=== PATIENT | male | born 1950 | race Caucasian/White ===

== ENCOUNTER 2024-09-05 14:22 | Outpatient (CLI) | payer OTHER, SELFPAY ==
--- NOTE | ~2024-09-05 | MR_ITS ---
MRI of the left knee Clinical history: Pain Technique: Coronal proton density and proton density-weighted images, sagittal proton-density and T2 fat-sat images, and axial proton-density fat-saturated images were acquired. Findings: Anterior and posterior cruciate ligaments are intact. Medial collateral ligament and the la teral collateral ligament complex are intact. Popliteus tendon is intact. Suspected subtle undersurface flap tear of the posterior horn of the medial meniscus. No lateral meni scal tear seen. There is focal high-grade chondromalacia the patellar apex with focal subchondral marrow edema. Remai carrie articular cartilage in the knee is well preserved. There is high-grade partial tear of the distal quadriceps tendon, with a few the posterior most fiber s remaining intact. Patellar tendon intact. There is small joint effusion. There is moderate septated Morton's cyst Impression: High-grade partial tear of the distal quadriceps tendon with a few of the posterior most fibers remai carrie intact. Focal grade 4 chondral lesion at the patellar apex. Moderate septated Morton's cyst. Reviewed, dictated and finalized at location . Impression: High-grade partial tear of the distal quadriceps tendon with a few of the poste rior most fibers remaining intact. Focal grade 4 chondral lesion at the patellar apex. Moderate septated Morton's cyst.
== END 2024-09-05 14:23 | disposition home or self-care (01) ==
LOC: GOSHIMG 14:23
PROVIDERS: PCP Emergency Medicine; Visit Provider Emergency Medicine
DX: M71.22 Synovial cyst of popliteal space [Baker], left knee (principal); S76.112A Strain of left quadriceps muscle, fascia and tendon, initial encounter
CPT/HCPCS: 73721